=== PATIENT | male | born 1960 | race Caucasian/White ===

== ENCOUNTER 2024-03-07 18:30 | Inpatient (IN) | payer OTHER, SELFPAY ==
[2024-03-07 15:53] VITALS: BP 116/71
--- NOTE | 2024-03-07 15:57 | ED.GENMED ---
ED Provider Triage
<Willie Armando PA-C - Last Filed: 03/07/24 16:00>
-
Patient seen by provider in Triage?: Seen in Triage
Attestation: A medical screening examination has been initiated by a qualified medical provider. Based on the assessment performed at this time, it has been determined that an emergent medical condition may exist and the patient has been informed
that further medical evaluation and possible additional diagnostic testing may be needed.
HPI: 63-year-old male presenting to the emergency department for evaluation of cough and respiratory difficulty that has been gradually worsening over the last few days. Went to urgent care week and was told he had 'epiglottitis' and was given
ciprofloxacin and a steroid and while the sore throat has fully resolved now with pain during deep inspiration, continued fevers with Tmax is of greater than 100 and shortness of breath. Family thought respiratory difficulties got acutely worse
over the last hour which is why they brought him to the ER.
GENERAL: Alert , ill-appearing
EYE: No visual abnormalities.
NECK: Trachea midline
ENT: No visible abnormalities.
LUNGS: Tachypneic, pulse ox 89%
NEUROLOGICAL: Alert and oriented
SKIN: Skin intact. No visible changes.
MUSCULOSKELETAL: Moving extremities normally
PSYCH: Normal and appropriate interaction.
This is a medical evaluation conducted in person to initiate diagnostic evaluation and provide initial therapeutics. Please see further documentation by the treating clinician. Patient placed on 2 L via nasal cannula. Labs and stat chest x-ray
ordered.
History of Present Illness
<Willie Armando PA-C - Last Filed: 03/07/24 16:00>
General
Chief Complaint: Breathing Problem
Time Seen by Provider: 03/07/24 17:13
<Juan Bernardo MD - Last Filed: 03/07/24 17:56>
History of Present Illness
History of Present Illness:
Patient is a 63-year-old male with history of A-fib on metoprolol, Xarelto presenting to the emergency department difficulty breathing. About a week ago he was diagnosed with epiglottitis at urgent care and was given Keflex and steroids. The
steroids did finish. He has a few days of Keflex left. Today developed fevers chills cough and difficulty breathing. He does state that his sore throat is much better. No changes with his voice. No difficulty swallowing. He is able to tolerate
his secretions. No leg swelling, chest pain. He does state that he had palpitations earlier today so he took an extra dose of metoprolol which resolved it.
Phy Exam
<Juan Bernardo MD - Last Filed: 03/07/24 17:56>
Physical Exam
Physical Exam:
GENERAL: in no acute distress
HEENT: normocephalic, extraocular movements intact, moist oral mucosa, posterior oropharynx without any significant swelling or exudates, no swelling to the tongue
NECK: normal inspection
RESPIRATORY: no respiratory distress, rhonchorous breath sounds at the bases left worse than right
CARDIOVASCULAR: regular rate and rhythm
ABDOMEN/: soft, non-distended, non-tender to palpation, no rebound or guarding
EXTREMITIES: non-tender, no edema/swelling
NEUROLOGIC: awake and alert, moves all extremities
SKIN: warm
Scores
<Juan Bernardo MD - Last Filed: 03/07/24 17:56>
Heart Failure Risk
Heart Failure Risk Score: Not Applicable
Course
<Willie Armando PA-C - Last Filed: 03/07/24 16:00>
Orders/Labs/Results
Orders:
Orders
03/07/24 15:56
CR Chest - 2 Views Urgent
Comment:
Reason For Exam: cough, fever
03/07/24 16:05
COVID-19 Antigen Urgent
Source: Nasal Swab
Complete Blood Count/With Diff Urgent
Comprehensive Metabolic Panel Urgent
Lactic Acid Q4H
Comment: CANCEL 2nd LACTIC ACID IF 1st LACTIC ACID IS LESS THAN 2
NT-proBNP Urgent
Influenza A+B Rapid Molecular Urgent
MIRTHA Source: Nasal Swab
Specimen Description:
03/07/24 17:15
CefTRIAXone [Rocephin] 1,000 mg IV NOW STA
Doxycycline [Vibramycin] 100 mg PO NOW STA
03/07/24 17:54
Electrocardiogram (*1) Urgent
Reason for Study: Palpitations
EKG- Treatment ONCE
Acetaminophen [Tylenol] 1,000 mg PO NOW STA
03/07/24 20:00
Lactic Acid Q4H
Comment: CANCEL 2nd LACTIC ACID IF 1st LACTIC ACID IS LESS THAN 2
Abnormal Lab Results
03/07/24
16:05
WBC 13.4 H 10^3/uL
(4.8-10.8)
Absolute Neuts (auto) 10.8 H 10^3/uL
(1.4-6.5)
Absolute Monos (auto) 1.2 H 10^3/uL
(0.1-0.6)
Neutrophils % 80.0 H %
(42.2-75.2)
Lymphocytes % 8.7 L %
(20.5-51.1)
Carbon Dioxide 20 L mmol/L
(22-30)
Glucose 143 H mg/dl
(70-99)
Total Bilirubin 1.6 H mg/dl
(0.2-1.3)
03/07/24 16:05
03/07/24 16:05
Vital Signs
Initial and Last Documented VS:
Initial Vital Signs
Temp Pulse Resp BP Pulse Ox
100.5 F H 105 18 116/71 89
03/07/24 15:53 03/07/24 15:53 03/07/24 15:53 03/07/24 15:53 03/07/24 15:53
Last Documented Vital Signs
Temp Pulse Resp BP Pulse Ox
100.5 F H 105 18 116/71 89
03/07/24 15:53 03/07/24 15:53 03/07/24 15:53 03/07/24 15:53 03/07/24 15:53
<Juan Bernardo MD - Last Filed: 03/07/24 17:56>
Orders/Labs/Results
Orders:
Orders
03/07/24 15:56
CR Chest - 2 Views Urgent
Comment:
Reason For Exam: cough, fever
03/07/24 16:05
COVID-19 Antigen Urgent
Source: Nasal Swab
Complete Blood Count/With Diff Urgent
Comprehensive Metabolic Panel Urgent
Lactic Acid Q4H
Comment: CANCEL 2nd LACTIC ACID IF 1st LACTIC ACID IS LESS THAN 2
NT-proBNP Urgent
Influenza A+B Rapid Molecular Urgent
MIRTHA Source: Nasal Swab
Specimen Description:
03/07/24 17:15
CefTRIAXone [Rocephin] 1,000 mg IV NOW STA
Doxycycline [Vibramycin] 100 mg PO NOW STA
03/07/24 17:54
Electrocardiogram (*1) Urgent
Reason for Study: Palpitations
EKG- Treatment ONCE
Acetaminophen [Tylenol] 1,000 mg PO NOW STA
03/07/24 20:00
Lactic Acid Q4H
Comment: CANCEL 2nd LACTIC ACID IF 1st LACTIC ACID IS LESS THAN 2
Abnormal Lab Results
03/07/24
16:05
WBC 13.4 H 10^3/uL
(4.8-10.8)
Absolute Neuts (auto) 10.8 H 10^3/uL
(1.4-6.5)
Absolute Monos (auto) 1.2 H 10^3/uL
(0.1-0.6)
Neutrophils % 80.0 H %
(42.2-75.2)
Lymphocytes % 8.7 L %
(20.5-51.1)
Carbon Dioxide 20 L mmol/L
(22-30)
Glucose 143 H mg/dl
(70-99)
Total Bilirubin 1.6 H mg/dl
(0.2-1.3)
03/07/24 16:05
03/07/24 16:05
Vital Signs
Initial and Last Documented VS:
Initial Vital Signs
Temp Pulse Resp BP Pulse Ox
100.5 F H 105 18 116/71 89
03/07/24 15:53 03/07/24 15:53 03/07/24 15:53 03/07/24 15:53 03/07/24 15:53
Last Documented Vital Signs
Temp Pulse Resp BP Pulse Ox
100.5 F H 105 18 116/71 89
03/07/24 15:53 03/07/24 15:53 03/07/24 15:53 03/07/24 15:53 03/07/24 15:53
<Juan Bernardo MD - Last Filed: 03/07/24 17:56>
MDM/Problems Addressed
Differential Diagnosis Includes:
Patient is a 63 male with history of A-fib on Xarelto recent diagnosis of epiglottitis last week on Keflex and steroids presenting to the emergency department fevers chills cough difficulty breathing. He is hypoxic here to 89% as well as being
febrile. Concern for pneumonia or COVID or flu. History and exam consistent with ACS or PE. He could be in A-fib with RVR secondary to the palpitations. Will check an EKG. Blood work obtained prior to evaluation shows leukocytosis. Chest x-ray
per my interpretation consistent with pneumonia. Will give antibiotics. Patient will need admission.
<Juan Bernardo MD - Last Filed: 03/07/24 17:56>
*Critical Care Note
Total Time (30-74mins, 75-104mins- exclusive of procedures): Not Applicable
ED Attending Note
<Willie Armando PA-C - Last Filed: 03/07/24 16:00>
-
Portions of this chart may have been created with voice recognition software.� Occasional wrong word or��sound alike� substitutions may have occurred due to the inherent limitations of voice recognition software.
Discharge Plan
Departure
Patient Disposition: Admit
Date of Disposition: 03/07/24
Time of Disposition: 17:56
Presentation/result/management discussed w/ accepting MD/DO: Hospitalist
Discharge Problem:
Pneumonia
Prescriptions:
No Action
famotidine 20 MG tablet
20 mg PO BID Qty: 28 0RF
Rx Instructions:
Take 20 mg twice a day for 14 days
ascorbic acid (vitamin C) [Vitamin C] 500 MG tablet
1,000 mg PO BID Qty: 56 0RF
Rx Instructions:
Take 1,000 mg twice a day for 14 days
aspirin 81 MG tablet,chewable
81 mg PO DAILY Qty: 14 0RF
Rx Instructions:
Take 81 mg daily for 14 days
zinc sulfate 220 MG capsule
220 mg PO DAILY Qty: 14 0RF
Rx Instructions:
Take 220 mg daily for 14 days
cholecalciferol (vitamin D3) 1,000 UNITS tablet
2,000 units PO DAILY Qty: 28 0RF
Rx Instructions:
Take 2,000 units daily for 14 days
melatonin 5 MG tablet
5 mg PO HS Qty: 14 0RF
Rx Instructions:
Take 5 mg daily at bedtime for 14 days
Referrals:
Pelon Villasenor Jr., MD [Family Provider] -
Discharge Date and Time
Print Language: FRISIAN
[2024-03-07 16:14] LABS: % Basophils 0.4 % (0-2); % Eosinophils 1.4 % (0-6); % Immature Granulocytes 0.3 % (0-0.5); % Lymphocytes 8.7 % (20.5-51.1); % Monocytes 9.2 % (1.7-9.3); Absolute Basophils 0.1 10^3/uL (0-0.2); Absolute Eosinophils 0.2 10^3/uL (0-0.7); Absolute Lymphocytes 1.2 10^3/uL (1.2-3.4); Absolute Monocytes 1.2 10^3/uL (0.1-0.6); Absolute Neutrophils 10.8 10^3/uL (1.4-6.5); Hematocrit 43.6 % (39.0-52.0); Hemoglobin 15.4 g/dL (13.0-18.0); Mean Corp Hgb Conc. 35.3 g/dL (33.0-37.0); Mean Corpuscular Hgb 30.6 pg (27.0-31.0); Mean Corpuscular Volume 86.7 fL (80.0-94.0); Mean Platelet Volume 8.6 fL (7.4-10.4); Nucleated Red Blood Cells % 0 % (-); Platelet Count 203 10^3/uL (130-400); Red Blood Cell Count 5.03 10^6/uL (4.70-6.10); Red Cell Dist. Width 12.7 % (11.5-14.5); White Blood Cell Count 13.4 10^3/uL (4.8-10.8)
[2024-03-07 16:24] LABS: Lactic Acid 1.6 mmol/L (0.7-2.0)
[2024-03-07 16:26] LABS: ALT (SGPT) 25 U/L (0-50); AST (SGOT) 22 U/L (17-59); Albumin 4.3 g/dl (3.5-5.0); Alkaline Phosphatase 58 U/L (38-126); Blood Urea Nitrogen 20 mg/dl (9-20); Calcium 8.6 mg/dl (8.4-10.2); Carbon Dioxide 20 mmol/L (22-30); Chloride 104 mmol/L (98-107); Glucose 143 mg/dl (70-99); Potassium 4.2 mmol/L (3.5-5.1); Sodium 139 mmol/L (135-145); Total Bilirubin 1.6 mg/dl (0.2-1.3); Total Protein 7.6 g/dl (6.3-8.2); eGFR > 60.00
[2024-03-07 16:30] LABS: COVID-19 Antigen Negative (Negative)
[2024-03-07 16:35] LABS: NT-proBNP 1020 pg/ml
[2024-03-07 18:12] VITALS: BP 124/88
--- NOTE | 2024-03-07 18:12 | HPS.HSE ---
Family Physician
-
Family Physician: Pelon Villasenor MD
Chief Complaint
-
Progressive soB
History of Present Illness
63M BiB Family HX A Fib on ASA, HLD seen at ER for evaluation of cough and respiratory difficulty
- gradually worsening over the last few days
- [place] [facility] [place] told [place] had '[place]iglottitis' and was given ciprofloxacin and a steroid
- while the sore throat has fully resolved
- pain during deep inspiration
- fevers with T max is of greater than 100
- associated shortness of breath.
Medical History
Past Medical History
Past Medical History: Reports Arrhythmia (A Fib ) and Hypercholesterolemia
Past Surgical History: Reports None
Social History
Tobacco: Non-smoker
Alcohol: None
Drug: None
Family History
Family History: Not pertinent
Allergies / Home Medications
Allergies reflects when Allergies were last updated in [employer].
Home Medications with original date entered in [employer]
Allergy/Medication List:
Allergies
Allergy/AdvReac Type Severity Reaction Status Date / Time
No Known Allergies Allergy Verified 04/28/21 11:20
Home Medications
ascorbic acid (vitamin C) 500 mg tablet (Vitamin C) 1,000 mg (2 x 500 mg) PO BID #56 tabs 04/28/21
aspirin 81 mg chewable tablet 81 mg PO DAILY #14 tabs 04/28/21
cholecalciferol (vitamin D3) 25 mcg (1,000 unit) tablet 2,000 units PO DAILY #28 tabs 04/28/21
famotidine 20 mg tablet 20 mg PO BID #28 tabs 04/28/21
melatonin 5 mg tablet 5 mg PO HS #14 tabs 04/28/21
zinc sulfate 50 mg zinc (220 mg) capsule 220 mg (4.4 x 50 mg zinc (220 mg)) PO DAILY #14 caps 04/28/21
Review of Systems
-
Constitutional: Reports No Symptoms
EENT: Reports No Symptoms
Respiratory: Reports Cough and Trouble Breathing
Cardiac: Reports No Symptoms
Abdomen/GI: Reports No Symptoms
: Reports No Symptoms
Musculoskeletal: Reports No Symptoms
Skin: Reports No Symptoms
Neurological: Reports No Symptoms
Endocrine: Reports No Symptoms
Hematologic/Lymphatic: Reports No Symptoms
Psych: Reports No Symptoms
Physical Exam
Vital Signs
Vital Signs
Temp Pulse Resp BP Pulse Ox
100.5 F H 105 18 116/71 89
03/07/24 15:53 03/07/24 15:53 03/07/24 15:53 03/07/24 15:53 03/07/24 15:53
Physical Exam
General: Well Developed, Well Nourished and No Apparent Distress
HEENT: NormoCephalic, Moist mucous membranes and Atraumatic
Respiratory: Clear
Cardiac: S1/S2 and Irregular Rhythm; No Murmur or Rub
GI: Soft, Non Tender, Non Distended and Normal Bowel Sounds; No Organomegaly
Rectal: Deferred by Provider
Musculoskeletal: No Clubbing, No Cyanosis and No Edema
Skin: No Rash
Neuro: Nonfocal/grossly intact
Laboratory Results
-
03/07/24 16:05
03/07/24 16:05
Laboratory Results
Lactic Acid 1.6 mmol/L (0.7-2.0) 03/07/24 16:05
Total Bilirubin 1.6 mg/dl (0.2-1.3) H 03/07/24 16:05
AST 22 U/L (17-59) 03/07/24 16:05
ALT 25 U/L (0-50) 03/07/24 16:05
Alkaline Phosphatase 58 U/L (38-126) 03/07/24 16:05
Data Reviewed
-
Diagnostic Radiology: Report Reviewed by me
Medical Tests (Nuc Med, Echo, EKG etc): Report Reviewed by me
Lab Data: Labs Reviewed by me
Impression/Plan
-
Vital Signs
Temp Pulse Resp BP Pulse Ox
100.5 F H 105 18 116/71 89
03/07/24 15:53 03/07/24 15:53 03/07/24 15:53 03/07/24 15:53 03/07/24 15:53
Abnormal Lab Results
03/07/24
16:05
WBC 13.4 H
Absolute Neuts (auto) 10.8 H
Absolute Monos (auto) 1.2 H
Neutrophils % 80.0 H
Lymphocytes % 8.7 L
Carbon Dioxide 20 L
Glucose 143 H
Total Bilirubin 1.6 H
Pending LA
NEG Covid
NEG Flu A & B
CXR: Mild Lt posterior basilar atelectasis and/or pneumonia.
EKG:
ATRIAL FIBRILLATION
RIGHTWARD AXIS
ABNORMAL ECG
NO PREVIOUS ECGS AVAILABL
NO PRIOR hospitalist admission:
ASSESSMENT & PLAN
Pending reconcilliation
Sepsis ( T 100.5, HR 105, WCC 13.4) due to PNA suspect CAP
Lt posterior basilar PNA > Atx
NEG Covid. NEG Flu A & B
- agree with empiric IV CFTZ and PO Doxy
- check PCT
- IVF
- Tylenol PRN
- F/U T and WCC
Subcentral CP worse with coughing : MSorgin > Angina
- urgent TPNI
- on Xarelto to BB
- SL NTG PRN
HX A Fib
- cont xarelto
- c/w metoprolol
HLD
- diet control
Elevated proBNP
No CXR evidence of CHF
- daily Wt.
DVT Px: on Xarelto
Code: Full code
IP TLM
[2024-03-07] MEDS: VIBRAMYCIN 100 MG PO (18:14)
[2024-03-07] MEDS: ROCEPHIN 1000 MG IV (18:14)
[2024-03-07 19:00] VITALS: BP 110/74
[2024-03-07 19:04] VITALS: BMI 33.3
[2024-03-07 19:11] LABS: Troponin I < 0.012 ng/ml
[2024-03-07 19:53] VITALS: BMI 33.5
[2024-03-07 20:02] VITALS: BP 138/82
[2024-03-07] MEDS: MUCINEX 600 MG PO (20:11)
[2024-03-07 21:45] VITALS: BP 149/83
[2024-03-07] MEDS: NSS 1000 IV (22:12)
[2024-03-07] MEDS: TESSALON PERLES 100 MG PO (22:13)
[2024-03-07] MEDS: XOPENEX 1.25 MG INHALANT SOLUTION INH (22:25)
[2024-03-07 23:00] VITALS: BP 123/66
[2024-03-07 23:20] LABS: Procalcitonin 0.21 ng/ml (0.0-0.25)
[2024-03-08] VITALS (8 sets, daily range): BP systolic 115–147; BP diastolic 76–84; PULSE 72; O2SAT 95; BMI 33.1
[2024-03-08 07:24] LABS: Hematocrit 42.5 % (39.0-52.0); Hemoglobin 14.5 g/dL (13.0-18.0); Mean Corp Hgb Conc. 34.1 g/dL (33.0-37.0); Mean Corpuscular Hgb 30.6 pg (27.0-31.0); Mean Corpuscular Volume 89.7 fL (80.0-94.0); Mean Platelet Volume 9.1 fL (7.4-10.4); Platelet Count 202 10^3/uL (130-400); Red Blood Cell Count 4.74 10^6/uL (4.70-6.10); Red Cell Dist. Width 12.7 % (11.5-14.5); White Blood Cell Count 10.6 10^3/uL (4.8-10.8)
[2024-03-08] MEDS: MUCINEX 600 MG PO ×2 (08:59→19:54)
[2024-03-08] MEDS: TOPROL XL 12.5 MG PO (08:59)
[2024-03-08] MEDS: LOW STRENGTH ASPIRIN 81 MG PO (08:59)
[2024-03-08] MEDS: XARELTO 20 MG PO (08:59)
[2024-03-08] MEDS: VIBRAMYCIN 100 MG PO ×2 (08:59→19:54)
--- NOTE | 2024-03-08 10:14 | W.PN.HOSP.TC ---
Today's Communication/Plan
-
continue CAP tx
wean O2 as able
supportive care
Assessment / Plan
Assessment / Plan
Assessment:
Acute hypoxic respiratory insufficiency on 4L
Sepsis POA (leukocytosis, fever, tachycardia)
L basilar community acquired PNA
- s/p sepsis IVF
- continue Rocephin, doxy, day 1
- supportive care, IS/Acapella/mucolytics added
- wean O2 as able
Chest pain - resolved
- likely related to acute pulmonic process
- prn pain control
- Trop negative
Parox A. Fib
- continue BB/Xarelto
HLD
Elevated Pro-BNP without evidence of volume overload
- monitor
DVT ppx: Xarelto
Code: Full
Anticipated Discharge: 24 - 48 hours
Subjective/Interval History
-
Date of Service: March 08, 2024
felt some respiratory distress overnight briefly, but more comfortably today
denies SOB, CP currently
Tmax 100.5
Objective Data
-
Labs:
Laboratory Results
03/08/24 03/08/24
06:21 09:18
WBC 10.6
Hgb 14.5
Hct 42.5
Plt Count 202
Sodium Cancelled Pending
Potassium Cancelled Pending
Chloride Cancelled Pending
Carbon Dioxide Cancelled Pending
BUN Cancelled Pending
Creatinine Cancelled Pending
Glucose Cancelled Pending
Calcium Cancelled Pending
Vital Signs:
Vital Signs
Temp Pulse Resp BP Pulse Ox
98.0 F 78 18 147/84 96
03/08/24 07:00 03/08/24 07:00 03/08/24 07:00 03/08/24 07:00 03/08/24 07:00
I&O
03/07/24 03/08/24 03/09/24
06:59 06:59 06:59
Intake Total 480 / 480
Balance 480 / 480
Physical Exam
-
General: No Apparent Distress
HEENT: Normocephalic and Atraumatic
Respiratory: Decreased Breath Sounds (L base, with rhonchi); Negative Wheezes
Cardiac: Regular Rhythm and S1/S2
GI: Soft and Nontender
Musculoskeletal: No Edema
Neuro: AO x 3
Hematologic / Lymphatic: No Lymphadenopathy
Psych: Calm
Data Reviewed
-
Total Time Spent with Patient (in minutes): 42
Labs: Labs Reviewed by me
[2024-03-08 10:33] LABS: Blood Urea Nitrogen 19 mg/dl (9-20); Calcium 8.5 mg/dl (8.4-10.2); Carbon Dioxide 20 mmol/L (22-30); Chloride 104 mmol/L (98-107); Estimated Creatinine Clearance 120 ml/min; Glucose 114 mg/dl (70-99); Potassium 4.2 mmol/L (3.5-5.1); Sodium 139 mmol/L (135-145); eGFR > 60.00
[2024-03-08] MEDS: NSS IV (13:40)
--- NOTE | 2024-03-08 16:04 | CM ---
front of house manager reviewed patient's chart and met with patient and patient lives with his spouse in a 2 story home, patient is independent with adl's and ambulation, patient works, drives, patient is currently on 2 liters of oxygen 96%, patient did not
require oxygen prior to admission. Plan will be to wean off oxygen.
PCP: Dr. Pelon Villasenor Jr
Pharmacy [facility] in [place]
Plan; Home when stable.
[2024-03-08] MEDS: ROCEPHIN 1000 MG IV (17:58)
[2024-03-08] MEDS: STERILE WATER FOR INJECTION 10 ML IV (17:59)
[2024-03-09 03:00] VITALS: BP 134/81
[2024-03-09 06:00] VITALS: BMI 32.9
[2024-03-09 07:00] VITALS: BP 143/86
[2024-03-09 08:02] LABS: Hematocrit 39.9 % (39.0-52.0); Hemoglobin 14.1 g/dL (13.0-18.0); Mean Corp Hgb Conc. 35.3 g/dL (33.0-37.0); Mean Corpuscular Hgb 30.9 pg (27.0-31.0); Mean Corpuscular Volume 87.3 fL (80.0-94.0); Mean Platelet Volume 8.8 fL (7.4-10.4); Platelet Count 201 10^3/uL (130-400); Red Blood Cell Count 4.57 10^6/uL (4.70-6.10); Red Cell Dist. Width 12.6 % (11.5-14.5); White Blood Cell Count 7.9 10^3/uL (4.8-10.8)
[2024-03-09 09:01] LABS: Blood Urea Nitrogen 18 mg/dl (9-20); Calcium 8.5 mg/dl (8.4-10.2); Carbon Dioxide 22 mmol/L (22-30); Chloride 105 mmol/L (98-107); Estimated Creatinine Clearance 119 ml/min; Glucose 121 mg/dl (70-99); Potassium 4.1 mmol/L (3.5-5.1); Sodium 138 mmol/L (135-145); eGFR > 60.00
[2024-03-09] MEDS: MUCINEX 600 MG PO (09:50)
[2024-03-09] MEDS: VIBRAMYCIN 100 MG PO (09:50)
[2024-03-09] MEDS: LOW STRENGTH ASPIRIN 81 MG PO (09:51)
[2024-03-09] MEDS: XARELTO 20 MG PO (09:53)
[2024-03-09] MEDS: TOPROL XL 12.5 MG PO (09:53)
--- NOTE | 2024-03-09 10:42 | W.PN.HOSP.TC ---
Today's Communication/Plan
-
dc to home
Assessment / Plan
Assessment / Plan
Assessment:
Acute hypoxic respiratory insufficiency on 4L
Sepsis POA (leukocytosis, fever, tachycardia)
L basilar community acquired PNA
- s/p sepsis IVF
- weaned to RA to dc on Cefdinir/Doxy for 8 further days and f/u PCP in 7-10 days
- supportive care, IS/Acapella/mucolytics added
Chest pain - resolved
- likely related to acute pulmonic process
- prn pain control
- Trop negative
Parox A. Fib
- continue BB/Xarelto
HLD
Elevated Pro-BNP without evidence of volume overload
- monitor
DVT ppx: Xarelto
Code: Full
More than 30 minutes spent in discharge including
Final examination of the patient
Summarizing hospital stay
Instructions for continuing care to all relevant caregivers
Preparation of discharge records, prescriptions, and referral forms
Total time spent (in minutes): 41
Anticipated Discharge: Today
Subjective/Interval History
-
Date of Service: March 09, 2024
on room air, doing well, no complaints
Objective Data
-
Labs:
Laboratory Results
03/09/24
07:48
WBC 7.9
Hgb 14.1
Hct 39.9
Plt Count 201
Sodium 138
Potassium 4.1
Chloride 105
Carbon Dioxide 22
BUN 18
Creatinine 0.8
Glucose 121 H
Calcium 8.5
Vital Signs:
Vital Signs
Temp Pulse Resp BP Pulse Ox
97.9 F 86 17 143/86 98
03/09/24 07:00 03/09/24 07:00 03/09/24 07:00 03/09/24 07:00 03/09/24 07:00
I&O
03/08/24 03/09/24 03/10/24
06:59 06:59 06:59
Intake Total 480 / 480 360 / 360 480 / 480
Balance 480 / 480 360 / 360 480 / 480
Physical Exam
-
General: No Apparent Distress
HEENT: Normocephalic and Atraumatic
Respiratory: Negative Wheezes
Cardiac: Regular Rhythm
GI: Soft and Nontender
Genito-urinary: No Costovertebral Tender
Musculoskeletal: No Edema
Neuro: AO x 3
Hematologic / Lymphatic: No Lymphadenopathy
Psych: Calm
Data Reviewed
-
Total Time Spent with Patient (in minutes): 41
Labs: Labs Reviewed by me
--- NOTE | 2024-03-09 10:48 | W.DS.TRANS ---
DC Summary - [employer]
-
Discharge Instructions:
Discharge Diagnosis/Procedures community acquired pneumonia, hypoxia resolved
Diet Low Cholesterol
Activity As tolerated
Bathing Restrictions None
Instructions:
Stand-Alone Forms:
Changes to Home Medications: No
Discharge Medications:
DC Medications w/original date entered in [employer]
metoprolol succinate 25 mg capsule sprinkle, ext. release 24 hr 12.5 mg PO DAILY Blood Pressure 03/07/24
rivaroxaban 20 mg tablet (Xarelto) 20 mg PO DAILY Blood Clot Prevention/Tx 03/07/24
cefdinir 300 mg capsule 300 mg PO Q12H #16 caps 03/09/24
doxycycline hyclate 100 mg capsule 100 mg PO Q12 #16 caps 03/09/24
guaifenesin 600 mg tablet, extended release 12 hr 600 mg PO Q12 #20 tabs 03/09/24
Home Medication Changes
Pending Results: No
Total time spent discharging patient (in min): 41
--- NOTE | 2024-03-09 10:56 | CM ---
Chart reviewed and patient is currently on room air, plan is to home today no needs.
Plan; Home no needs.
[2024-03-09 11:00] VITALS: BP 125/72
== END 2024-03-09 12:29 | disposition home or self-care (01) | DRG 871 ==
LOC: 4 WEST ACU 18:30
PROVIDERS: Physician Assistant Medical; ADMITTING PHYSICIAN Internal Medicine; ATTENDING PHYSICIAN Internal Medicine; EMERGENCY PHYSICIAN Student in an Organized Health Care Education/Training Program; FAMILY PHYSICIAN Internal Medicine
DX: A41.89 Other specified sepsis (principal); J18.9 Pneumonia, unspecified organism; I48.0 Paroxysmal atrial fibrillation; R09.02 Hypoxemia; R06.89 Other abnormalities of breathing; E78.00 Pure hypercholesterolemia, unspecified; Z11.52 Encounter for screening for COVID-19
CPT/HCPCS: 71046; 80048; 80053; 83605; 83880; 84145; 84484; 85025; 85027; 87502; 87811; 93005; 94640; 96374; 97162; 97165; 99285